=== PATIENT | female | born 2005 | race African-American/Black ===

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

== ENCOUNTER 2024-01-17 12:21 | Emergency (ER) | payer SELFPAY ==
[2024-01-17 12:52] VITALS: BP 140/82; O2SAT 100
[2024-01-17 13:13] LABS: BASOPHILS % (AUTO) 0.5 %; EOSINOPHILS # (AUTO) 0.1 10^3/uL (0.0-0.7); EOSINOPHILS % (AUTO) 2.4 %; HCT - HEMATOCRIT 38.6 % (37.0-47.0); HGB - HEMOGLOBIN 12.3 g/dL (12.0-16.0); LYMPHOCYTES # (AUTO) 1.3 10^3/uL (1.5-3.5); LYMPHOCYTES % (AUTO) 30.5 %; MEAN CORPUSCULAR HEMOGLOBIN 28.7 pg (27.0-31.0); MEAN CORPUSCULAR HGB CONC 31.9 g/dL (32.0-36.0); MEAN PLATELET VOLUME 10.7 fL (7.9-10.8); MONOCYTES # (AUTO) 0.3 10^3/uL (0.0-1.0); MONOCYTES % (AUTO) 7.3 %; NEUTROPHILS # (AUTO) 2.4 10^3/uL (1.5-6.6); NEUTROPHILS % (AUTO) 59.1 %; PLT - PLATELET COUNT 195 10^3/uL (130-450); RED BLOOD COUNT 4.29 10^6/uL (4.20-5.40); RED CELL DISTRIBUTION WIDTH 13.9 % (12.0-15.0); WHITE BLOOD COUNT 4.1 x10^3/uL (4.8-10.8)
[2024-01-17 13:25] LABS: BUN - BLOOD UREA NITROGEN 13 mg/dL (6-20); CARBON DIOXIDE - CO2 26 mmol/L (21-32); CHLORIDE 109 mmol/L (101-111); CREATININE 0.7 mg/dL (0.6-1.3); GFR - MDRD 131 (>89); GLUCOSE 92 mg/dL (74-104); POTASSIUM 4.1 mmol/L (3.5-4.5); SODIUM 140 mmol/L (135-145)
[2024-01-17 13:34] LABS: HCG,QUALITATIVE BLOOD NEGATIVE
--- NOTE | 2024-01-17 13:50 | ED Physician Documentation ---
PD HPI ABD PAIN - Stated complaint Stated Complaint: - Chief complaint Chief Complaint: Abd Pain - History obtained from History obtained from: Patient - Additional information Additional information: 18-year-old homeless and uninsured who with history of seizure disorder. She presents late on her menses with heavy bleeding starting overnight last night. She also has pelvic cramping with it. 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, Miscarriage(s) : Renal insuffiency HEENT: None Psych: Depression, Anxiety, Bipolar disorder, Schizophrenia, Other Musculoskeletal: None Derm: None - Past Surgical History Past Surgical History: Yes Ortho: ACL reconstruction - Present Medications Home Medications: Ambulatory Orders Medication Instructions Recorded Confirmed Ibuprofen [Motrin] 800 mg PO Q8H PRN #30 tablet 01/17/24 - Allergies Allergies/Adverse Reactions: Allergies Allergy/AdvReac Type Severity Reaction Status Date / Time haloperidol [From Haldol] Allergy Cramps Verified 01/17/24 12:39 acetaminophen AdvReac Emesis Verified 01/17/24 12:39 lorazepam [From Ativan] AdvReac Hallucinati Verified 01/17/24 12:39 ons - Social History Does the pt smoke?: Yes Smoking Status: Current some day smoker Does the pt drink ETOH?: Yes Does the pt have substance abuse?: Yes Substance Use and Type: Marijuana - Immunizations Immunizations are current?: No Immunizations: Other immun not current - POLST Patient has POLST: No PD ED PE NORMAL - Vitals Vital signs reviewed: Yes - General General: Alert and oriented X 3, No acute distress - Abdomen Abdomen: Normal bowel sounds, Soft, Non tender - Neuro Neuro: Alert and oriented X 3, Normal speech Results - Vitals Vitals: Vital Signs - 24 hr 01/17/24 12:40 Temperature 36.4 C L Heart Rate 91 Respiratory 18 Rate Blood Pressure 140/82 H O2 Saturation 100 Oxygen O2 Source Room air - Labs Labs: Laboratory Tests 01/17/24 01/17/24 13:07 13:07 WBC 4.1 L RBC 4.29 Hgb 12.3 Hct 38.6 MCV 90.0 MCH 28.7 MCHC 31.9 L RDW 13.9 Plt Count 195 MPV 10.7 Neut # (Auto) 2.4 Lymph # (Auto) 1.3 L [place] # (Auto) 0.3 Eos # (Auto) 0.1 Baso # (Auto) 0.0 Absolute Nucleated RBC 0.00 Nucleated RBC % 0.0 Sodium 140 Potassium 4.1 Chloride 109 Carbon Dioxide 26 Anion Gap 5.0 L BUN 13 Creatinine 0.7 Estimated GFR (MDRD) 131 Glucose 92 Calcium 10.0 Serum HCG, Qual NEGATIVE PD Medical Decision Making - ED course ED course: 18-year-old with heavy late menses and pelvic cramping. She is nontender and not an extremis. Workup in the emergency department demonstrates a normal H&H, normal BMP, and negative testing. Will start NSAIDs and hormonal therapy. I wrote a pharmacy voucher for her, but she needs some meds today. I talked wit h the pharmacist. We do not have any combination OCPs in house so was given Depo Provera instead. That said the patient did not want the Depo-Provera or control as she is wanting to get and as such we will do NSAIDs and she will return if she worsens. Departure - Departure Disposition: 01 Home, Self Care Clinical Impression: Menses, irregular Condition: Good Record reviewed to determine appropriate education?: Yes Instructions: ED Bleed Irregular Vaginal [facility]: [facility] [Provider Group] Prescriptions: Ibuprofen [Motrin] 800 mg PO Q8H PRN #30 tablet PRN Reason: PAIN &/OR FEVER Comments: [facility], return if worse. Forms: PCP List Discharge Date/Time: 01/17/24 14:04
[2024-01-17] MEDS: IBUPROFEN 800 MG TABLET PO STA (14:01)
== END 2024-01-17 14:04 | disposition home or self-care (01) ==
LOC: ED 12:21
DX: N92.6 Irregular menstruation, unspecified (principal); I10 Essential (primary) hypertension; F17.200 Nicotine dependence, unspecified, uncomplicated; Z59.00 Homelessness unspecified
CPT/HCPCS: 36415; 80048; 84703; 85025; 99283; 99284; A9270

== ENCOUNTER 2024-01-29 13:16 | Outpatient (CLI) | payer SELFPAY | END 2024-01-29 23:59 | disposition critical access hospital (66) | LOC: EMS 13:16 | DX: H53.8 Other visual disturbances (principal); R11.10 Vomiting, unspecified; S09.90XA Unspecified injury of head, initial encounter; W18.39XA Other fall on same level, initial encounter; Y92.830 Public park as the place of occurrence of the external cause | CPT/HCPCS: A0425; A0429 ==

== ENCOUNTER 2024-01-29 13:38 | Emergency (ER) | payer SELFPAY ==
[2024-01-29 13:47] VITALS: BP 110/82; O2SAT 96
[2024-01-29 14:12] LABS: BASOPHILS % (AUTO) 0.4 %; EOSINOPHILS # (AUTO) 0.2 10^3/uL (0.0-0.7); EOSINOPHILS % (AUTO) 4.6 %; HCT - HEMATOCRIT 40.7 % (37.0-47.0); LYMPHOCYTES # (AUTO) 1.2 10^3/uL (1.5-3.5); LYMPHOCYTES % (AUTO) 23.5 %; MEAN CORPUSCULAR HEMOGLOBIN 29.1 pg (27.0-31.0); MEAN CORPUSCULAR HGB CONC 31.9 g/dL (32.0-36.0); MEAN CORPUSCULAR VOLUME 91.1 fL (81.0-99.0); MEAN PLATELET VOLUME 11.1 fL (7.9-10.8); MONOCYTES # (AUTO) 0.4 10^3/uL (0.0-1.0); MONOCYTES % (AUTO) 7.8 %; NEUTROPHILS # (AUTO) 3.2 10^3/uL (1.5-6.6); NEUTROPHILS % (AUTO) 63.5 %; PLT - PLATELET COUNT 223 10^3/uL (130-450); RED BLOOD COUNT 4.47 10^6/uL (4.20-5.40); RED CELL DISTRIBUTION WIDTH 13.5 % (12.0-15.0)
[2024-01-29] MEDS: DEXAMETHASONE 10 MG/ML VIAL IM STA (14:13)
[2024-01-29] MEDS: KETOROLAC 60 MG/2 ML VIAL IM STA (14:13)
--- NOTE | 2024-01-29 14:45 | ED Physician Documentation ---
PD HPI HEADACHE - Stated complaint Stated Complaint: GLF - Chief complaint Chief Complaint: Heent - History obtained from History obtained from: Patient - Additional information Additional information: The pt comes to the ED with CC of GLF last night. She states she became lightheaded and fell backward, striking her head. No LOC. Pt was able to partially catch herself before landing. She states this has happened previously when she gets dehydrated. The pt denies headache, visual change, or focal neurologic deficits. No other injuries. 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, Miscarriage(s) : Renal insuffiency HEENT: None Psych: Depression, Anxiety, Bipolar disorder, Schizophrenia, Other Musculoskeletal: None Derm: None - Past Surgical History Past Surgical History: Yes Ortho: ACL reconstruction - Present Medications Home Medications: Ambulatory Orders Medication Instructions Recorded Confirmed Ibuprofen [Motrin] 800 mg PO Q8H PRN #30 tablet 01/17/24 cephALEXin [Keflex] 500 mg PO Q6H #28 cap 02/02/24 - Allergies Allergies/Adverse Reactions: Allergies Allergy/AdvReac Type Severity Reaction Status Date / Time haloperidol [From Haldol] Allergy Cramps Verified 02/04/24 12:52 acetaminophen AdvReac Emesis Verified 02/04/24 12:52 lorazepam [From Ativan] AdvReac Hallucinati Verified 02/04/24 12:52 ons - Social History Does the pt smoke?: Yes Smoking Status: Current every day smoker Does the pt drink ETOH?: Yes Does the pt have substance abuse?: Yes - Immunizations Immunizations are current?: No Immunizations: Other immun not current - POLST Patient has POLST: No PD ED PE NORMAL - Vitals Vital signs reviewed: Yes - General General: Alert and oriented X 3, No acute distress, Well developed/nourished - HEENT HEENT: Atraumatic (No contusion, abrasion, or other evidence of trauma), PERRL, EOMI, Moist mucous membranes - Neck Neck: Supple, no meningeal sign, No bony TTP - Cardiac Cardiac: RRR, No murmur, Strong equal pulses - Respiratory Respiratory: No respiratory distress, Clear bilaterally - Abdomen Abdomen: Soft, Non tender, Non distended - Derm Derm: Normal color, Warm and dry, No rash - Extremities Extremities: No deformity - Neuro Neuro: Alert and oriented X 3 - Psych Psych: Normal mood, Normal affect Results - Vitals Vitals: Oxygen O2 Source Room air - Labs Labs: Laboratory Tests 01/29/24 14:05 WBC 5.0 RBC 4.47 Hgb 13.0 Hct 40.7 MCV 91.1 MCH 29.1 MCHC 31.9 L RDW 13.5 Plt Count 223 MPV 11.1 H Neut # (Auto) 3.2 Lymph # (Auto) 1.2 L [place] # (Auto) 0.4 Eos # (Auto) 0.2 Baso # (Auto) 0.0 Absolute Nucleated RBC 0.00 Nucleated RBC % 0.0 PD Medical Decision Making - ED course Complexity details: reviewed results, re-evaluated patient, considered differential, d/w patient ED course: The pt was well-appearing, and the plan was to give the pt IV fluids, but just after having blood drawn, she left the ED without completing treatment. The pt was stable, and most likely would have been discharged, but final disposition had not been made as of the pt's departure. Departure - Departure Disposition: Left Prior to Disposition Clinical Impression: Head injury Qualifiers: Encounter type: initial encounter Qualified Code(s): S09.90XA - Unspecified injury of head, initial encounter Forms: PCP List Discharge Date/Time: 01/29/24 14:44
== END 2024-01-29 14:44 | disposition home or self-care (01) ==
LOC: EDUNIT# → ED 13:38
DX: S09.90XA Unspecified injury of head, initial encounter (principal); W19.XXXA Unspecified fall, initial encounter
CPT/HCPCS: 36415; 85025; 96372; 99283

== ENCOUNTER 2024-02-02 14:04 | Emergency (ER) | payer SELFPAY ==
[2024-02-02 14:31] VITALS: BP 129/66; O2SAT 100
[2024-02-02 14:37] LABS: BILIRUBIN,URINE NEGATIVE (NEGATIVE); GLUCOSE, URINE (UA) NEGATIVE (NEGATIVE); KETONES,URINE (UA) NEGATIVE (NEGATIVE); LEUKOCYTE ESTERASE, URINE NEGATIVE (NEGATIVE); NITRITE,URINE NEGATIVE (NEGATIVE); OCCULT BLOOD,URINE NEGATIVE (NEGATIVE); PROTEIN,URINE NEGATIVE (NEGATIVE); UROBILINOGEN,URINE 0.2 (NORMAL) E.U./dL (NORMAL)
[2024-02-02 14:39] LABS: CLARITY,URINE CLOUDY (CLEAR); HCG UR QUAL NEGATIVE
[2024-02-02 14:49] LABS: AMORPHOUS SEDIMENT,UR Marked /LPF; BACTERIA,URINE Rare /HPF (None Seen); RBC,URINE None Seen /HPF (0-5); SQUAMOUS EPITHELIAL CELL,UR FEW Squamous (<= Few); WBC,URINE 0-3 /HPF (0-5)
--- NOTE | 2024-02-02 15:53 | ED Physician Documentation ---
History of Present Illness - Stated complaint Stated Complaint: ,GLF, HIP PX - Chief complaint Chief Complaint: Ext Problem - History obtained from History obtained from: Patient - History of Present Illness Timing: How many days ago (2) Pain level max: 4 Pain level now: 4 - Additonal information Additional information: Patient is a 18-year-old female who presents to the emergency department stating that her bellybutton has been red and swollen, she states he used to have a piercing in this site. She has no piercing currently. She also states that her bladder feels "heavy and like she is urinating frequently. She states that she used to have "100s of seizures per day", states that she had a seizure yesterday and injured her left hip. She states that it is worse with walking, better with rest. She states she does not have any money for Motrin or Tylenol. No head injury. No neck or back pain. No fevers. No chills. No drainage. No vaginal bleeding or discharge. Not sexually active. No STD exposure. Review of Systems Constitutional: denies: Fever GI: denies: Vomiting, Diarrhea PD PAST MEDICAL HISTORY - Past Medical History Cardiovascular: Hypertension Respiratory: Sleep apnea Neuro: Seizure disorder Endocrine/Autoimmune: None GI: None DIRECTOR OF CARDIOLOGY: Ovarian cysts, Miscarriage(s) : Renal insuffiency HEENT: None Psych: Depression, Anxiety, Bipolar disorder, Schizophrenia, Other Musculoskeletal: None Derm: None - Past Surgical History Past Surgical History: Yes Ortho: ACL reconstruction - Present Medications Home Medications: Ambulatory Orders Medication Instructions Recorded Confirmed Ibuprofen [Motrin] 800 mg PO Q8H PRN #30 tablet 01/17/24 cephALEXin [Keflex] 500 mg PO Q6H #28 cap 02/02/24 - Allergies Allergies/Adverse Reactions: Allergies Allergy/AdvReac Type Severity Reaction Status Date / Time haloperidol [From Haldol] Allergy Cramps Verified 02/02/24 14:28 acetaminophen AdvReac Emesis Verified 02/02/24 14:28 lorazepam [From Ativan] AdvReac Hallucinati Verified 02/02/24 14:28 ons - Social History Does the pt smoke?: Yes Smoking Status: Current every day smoker Does the pt drink ETOH?: Yes Does the pt have substance abuse?: Yes - Immunizations Immunizations are current?: No Immunizations: Other immun not current - POLST Patient has POLST: No PD ED PE NORMAL - Vitals Vital signs reviewed: Yes - General General: Alert and oriented X 3, No acute distress - HEENT HEENT: PERRL, Moist mucous membranes - Neck Neck: Supple, no meningeal sign - Cardiac Cardiac: RRR, Strong equal pulses - Respiratory Respiratory: No respiratory distress, Clear bilaterally - Abdomen Abdomen: Soft, Non tender, Non distended, Other (Mild erythema surrounding the umbilicus. There is a small easily reducible periumbilical hernia. No induration or drainage.) - Back Back: No spinal TTP (No midline tenderness to palpation or percussion. No step- off or deformity.) - Derm Derm: Warm and dry - Extremities Extremities: Other (Normal examination of the left hip, no crepitus. Full range of motion without any significant pain. No tenderness to palpation. Neurovascular intact. Otherwise normal examination of the left lower extremity) - Neuro Neuro: Alert and oriented X 3 - Psych Psych: Normal mood, Normal affect Results - Vitals Vitals: Vital Signs - 24 hr 02/02/24 14:19 Temperature 36.1 C L Heart Rate 78 Respiratory 16 Rate Blood Pressure 129/66 O2 Saturation 100 Oxygen O2 Source Room air - Labs Labs: Laboratory Tests 02/02/24 02/02/24 14:30 14:30 Urine Color YELLOW Urine Clarity CLOUDY Urine pH 8.0 H Ur Specific [place] 1.020 Urine Protein NEGATIVE Urine Glucose (UA) NEGATIVE Urine Ketones NEGATIVE Urine Occult Blood NEGATIVE Urine Nitrite NEGATIVE Urine Bilirubin NEGATIVE Urine Urobilinogen 0.2 (NORMAL) Ur Leukocyte Esterase NEGATIVE Urine RBC None Seen Urine WBC 0-3 Ur Squamous Epith Cells FEW Squamous Amorphous Sediment Marked Urine Bacteria Rare Ur Microscopic Review INDICATED Urine Culture Comments NOT INDICATED Urine HCG, Qual NEGATIVE PD Medical Decision Making - ED course Complexity details: reviewed results, re-evaluated patient, considered differential, d/w patient ED course: 18-year-old female with a mild cellulitis of the abdomen where her piercing used to be, we will place on Keflex for this. No abscess. No purulent drainage. She also has pain to the left hip after a seizure yesterday. Ambulating without any noticeable limp. Given a dose of Toradol here. She can use Motrin or Tylenol as needed for pain at home. Urinalysis does not show any acute abnormalities. No evidence of UTI. She is not sexually active, no vaginal bleeding or discharge. Patient states that she does not have any money and will be moving back to [place] soon. She received a pharmacy voucher for the cephalexin. Patient is well-appearing, nontoxic. Afebrile. Patient counseled regarding signs and symptoms for which I believe and urgent re-evaluation would be necessary. Patient with good understanding of and agreement to plan and is comfortable going home at this time This document was made in part using voice recognition software. While efforts are made to proofread this document, sound alike and grammatical errors may occur. Departure - Departure Disposition: Home, Self Care Clinical Impression: Cellulitis Qualifiers: Site of cellulitis: trunk Site of cellulitis of trunk: umbilicus Qualified Code(s): L03.316 - Cellulitis of umbilicus Strain of left hip Qualifiers: Encounter type: initial encounter Qualified Code(s): S76.012A - Strain of muscle, fascia and tendon of left hip, initial encounter Condition: Good Instructions: ED Infec Skin Cellulitis, ED Strain Muscle Ext Follow-Up: [facility] [Provider Group] [facility] [Provider Group] Prescriptions: cephALEXin [Keflex] 500 mg PO Q6H #28 cap Comments: You were given a voucher today for Keflex. Please take this to the [facility] pharmacy to fill your prescription. Please follow-up with a walk-in clinic as needed for any further care. Forms: PCP List Discharge Date/Time: 02/02/24 16:15
[2024-02-02] MEDS: KETOROLAC 30 MG/ML VIAL IM STA (16:01)
[2024-02-02] MEDS: cephALEXin 250 MG CAPSULE PO STA (16:02)
== END 2024-02-02 16:15 | disposition home or self-care (01) ==
LOC: ED 14:04
DX: L03.316 Cellulitis of umbilicus (principal); S76.012A Strain of muscle, fascia and tendon of left hip, initial encounter; W18.30XA Fall on same level, unspecified, initial encounter; Y93.89 Activity, other specified; F17.200 Nicotine dependence, unspecified, uncomplicated
CPT/HCPCS: 81001; 81025; 96372; 99283; A9270; 81003; 87086

== ENCOUNTER 2024-02-04 12:03 | Outpatient (CLI) | payer SELFPAY | END 2024-02-04 12:04 | disposition critical access hospital (66) | LOC: EMS 12:03 | DX: R41.0 Disorientation, unspecified (principal); R21 Rash and other nonspecific skin eruption; G43.909 Migraine, unspecified, not intractable, without status migrainosus | CPT/HCPCS: A0425; A0429 ==

== ENCOUNTER 2024-02-04 12:29 | Emergency (ER) | payer SELFPAY ==
--- NOTE | 2024-02-04 12:47 | ED Physician Documentation ---
History of Present Illness - Stated complaint Stated Complaint: ALLERGIC REACTION - Additonal information Additional information: 18-year-old female with complex psych history has not been on any of her psych medications now for about 2 years. This is patient's sixth visit in the last 3 months and I have seen her during some of these visits and she does appear to be more mentally unstable, Very agitated with some pressured speaking. Patient says that she was having some hallucinations yesterday but she says this is strictly due to the Keflex.. Patient is very labile and is coming in today for concerns of an allergic reaction to Keflex. Patient was recently here and sta rted on Keflex for possible cellulitis in her bellybutton that has improved and she is now feeling some itchiness and erythema with burning sensation to her left pannus. No fevers or chills no shortness of breath airway patent. PD PAST MEDICAL HISTORY - Past Medical History Cardiovascular: Hypertension Respiratory: Sleep apnea Neuro: Seizure disorder Endocrine/Autoimmune: None GI: None [employer]: Ovarian cysts, Miscarriage(s) : Renal insuffiency HEENT: None Psych: Depression, Anxiety, Bipolar disorder, Schizophrenia, Other Musculoskeletal: None Derm: None - Past Surgical History Past Surgical History: Yes Ortho: ACL reconstruction - Present Medications Home Medications: Ambulatory Orders Medication Instructions Recorded Confirmed Ibuprofen [Motrin] 800 mg PO Q8H PRN #30 tablet 01/17/24 cephALEXin [Keflex] 500 mg PO Q6H #28 cap 02/02/24 - Allergies Allergies/Adverse Reactions: Allergies Allergy/AdvReac Type Severity Reaction Status Date / Time haloperidol [From Haldol] Allergy Cramps Verified 02/04/24 12:52 acetaminophen AdvReac Emesis Verified 02/04/24 12:52 lorazepam [From Ativan] AdvReac Hallucinati Verified 02/04/24 12:52 ons - Social History Does the pt smoke?: Yes Smoking Status: Current every day smoker Does the pt drink ETOH?: Yes Does the pt have substance abuse?: Yes - Immunizations Immunizations are current?: No Immunizations: Other immun not current - POLST Patient has POLST: No PD ED PE NORMAL - Vitals Vital signs reviewed: Yes - General General: Alert and oriented X 3, No acute distress, Well developed/nourished - HEENT HEENT: Atraumatic - Abdomen Abdomen: Normal bowel sounds, Soft, Non tender, Non distended, No organomegaly - Derm Derm: Other (Erythema to left portion of patient's pannusNo induration no fluctuance) PD ED PE EXPANDED - Psych Psych: Depressed, Withdrawn, Poor eye contact, Anxious, Agitated, Manic, Pressured speech, Visual hallucinations. No: Suicidal, Homicidal Results - Vitals Vitals: Vital Signs - 24 hr 02/04/24 12:32 Temperature 36.5 C Heart Rate 68 Respiratory 16 Rate Blood Pressure 125/72 O2 Saturation 97 Oxygen O2 Source Room air - Labs Labs: Laboratory Tests 02/04/24 02/04/24 13:01 13:01 WBC 4.5 L RBC 4.13 L Hgb 12.1 Hct 37.5 MCV 90.8 MCH 29.3 MCHC 32.3 RDW 13.2 Plt Count 219 MPV 10.3 Neut # (Auto) 2.4 Lymph # (Auto) 1.4 L [place] # (Auto) 0.4 Eos # (Auto) 0.3 Baso # (Auto) 0.0 Absolute Nucleated RBC 0.00 Nucleated RBC % 0.0 Sodium 139 Potassium 4.4 Chloride 107 Carbon Dioxide 30 Anion Gap 2.0 L BUN 13 Creatinine 0.6 Estimated GFR (MDRD) 156 Glucose 81 Calcium 9.7 Total Bilirubin 0.7 AST 14 ALT 14 Alkaline Phosphatase 48 Total Protein 6.4 Albumin 4.2 Globulin 2.2 Albumin/Globulin Ratio 1.9 Lipase 51 TSH 1.33 Salicylates < 1.5 Acetaminophen 0.2 Ethyl Alcohol < 10.0 PD Medical Decision Making - ED course ED course: 18-year-old female presents emergency department for concerns of worsening skin infection. Patient also reports that she is worried that she may be having an allergic reaction from the cough exercise been taking for her cellulitis in her [place] that has now fully resolved but now patient is worried that she has some new erythema to the left portion of her pannus. Because patient did state that she has been taking her psych meds now for about a year and this is her sixth ER visit and she does appear to be quite emotionally labile I went ahead and involved social work for further evaluation of the patient and to communicate and discussed with patient her concerns for possible hallucinations. Labs are complete for further evaluation and she has mild leukopenia white count 4.5 no electrolyte abnormalities no anemia. We have that she is experiencing a yeast infection in her left pannus that she was given some nysta tin topical for this to help with the irritation and it proper hygiene was discussed with the patient she does appear to be quite disheveled and poor hygiene. Patient says that she is planning on moving in about a month social work saw her and does not see any concerning signs to detain the patient for DCR. Patient says that she does not want any additional resources she said that she has not had any visual or audible hallucinations today she denies any suicidal homicidal ideation. Patient was told if these symptoms were to start in terms of suicidal or homicidal ideation or if her hallucinations were to get any worse to come back into the emergency department for further evaluation. Patient told to stop taking her Keflex. All questions answered patient safe for discharge. Departure - Departure Disposition: 01 Home, Self Care Clinical Impression: Skin yeast infection, Hallucinations, visual Instructions: ED Candidiasis Cutaneous Comments: Thank you for trusting us with your care. It appears that you have a yeast infection in the folds of your abdomen. We have given you some nystatin powder here in the emergency department you can apply this to your abdominal fold 2-3 times a day. Make sure that you are washing your body with soap and water every single day and drying the area with a towel thoroughly before applying the powder. If you are noticing any increased hallucinations despite being on the Keflex please come back to the emergency department for further evaluation I do not believe that you need to continue the Keflex antibiotic. Please come back to the emergency department for starting to have any hallucinations, suicidal homicidal ideation. Forms: PCP List Discharge Date/Time: 02/04/24 14:30
[2024-02-04 12:58] VITALS: BP 125/72; O2SAT 97
[2024-02-04 13:11] LABS: BASOPHILS % (AUTO) 0.4 %; EOSINOPHILS # (AUTO) 0.3 10^3/uL (0.0-0.7); EOSINOPHILS % (AUTO) 6.3 %; HCT - HEMATOCRIT 37.5 % (37.0-47.0); HGB - HEMOGLOBIN 12.1 g/dL (12.0-16.0); LYMPHOCYTES # (AUTO) 1.4 10^3/uL (1.5-3.5); LYMPHOCYTES % (AUTO) 30.7 %; MEAN CORPUSCULAR HEMOGLOBIN 29.3 pg (27.0-31.0); MEAN CORPUSCULAR HGB CONC 32.3 g/dL (32.0-36.0); MEAN CORPUSCULAR VOLUME 90.8 fL (81.0-99.0); MEAN PLATELET VOLUME 10.3 fL (7.9-10.8); MONOCYTES # (AUTO) 0.4 10^3/uL (0.0-1.0); NEUTROPHILS # (AUTO) 2.4 10^3/uL (1.5-6.6); NEUTROPHILS % (AUTO) 53.6 %; PLT - PLATELET COUNT 219 10^3/uL (130-450); RED BLOOD COUNT 4.13 10^6/uL (4.20-5.40); RED CELL DISTRIBUTION WIDTH 13.2 % (12.0-15.0); WHITE BLOOD COUNT 4.5 x10^3/uL (4.8-10.8)
[2024-02-04 13:21] LABS: ACETAMINOPHEN 0.2 ug/mL; ETOH - ETHANOL < 10.0 mg/dL; LIPASE 51 U/L (11-82)
[2024-02-04 13:25] LABS: ALBUMIN 4.2 g/dL (3.2-5.5); ALBUMIN/GLOBULIN RATIO 1.9 (1.0-2.2); ALKALINE PHOSPHATASE 48 IU/L (42-121); ALT ALANINE AMINOTRANSFERASE 14 IU/L (10-60); AST ASPARTATE AMINOTRANSFERASE 14 IU/L (10-42); BILIRUBIN,TOTAL 0.7 mg/dL (0.2-1.0); BUN - BLOOD UREA NITROGEN 13 mg/dL (6-20); CALCIUM 9.7 mg/dL (8.5-10.3); CARBON DIOXIDE - CO2 30 mmol/L (21-32); CHLORIDE 107 mmol/L (101-111); CREATININE 0.6 mg/dL (0.6-1.3); GFR - MDRD 156 (>89); GLUCOSE 81 mg/dL (74-104); POTASSIUM 4.4 mmol/L (3.5-4.5); SODIUM 139 mmol/L (135-145); TOTAL PROTEIN 6.4 g/dL (6.4-8.9)
[2024-02-04 13:26] LABS: SALICYLATE < 1.5 mg/dL
[2024-02-04] MEDS: NYSTATIN POWDER 15 GM TOP STA (13:28)
[2024-02-04 14:14] LABS: THYROID STIMULATING HORMONE 1.33 uIU/mL (0.34-5.60)
== END 2024-02-04 14:30 | disposition home or self-care (01) ==
LOC: EDUNIT# → ED 12:29
DX: B37.2 Candidiasis of skin and nail (principal); R44.1 Visual hallucinations; D72.819 Decreased white blood cell count, unspecified; F17.200 Nicotine dependence, unspecified, uncomplicated
CPT/HCPCS: 36415; 80053; 80143; 80179; 82077; 83690; 84443; 85025; 99283; A9270

== ENCOUNTER 2024-02-16 15:00 | Outpatient (CLI) | payer SELFPAY | END 2024-02-16 23:59 | disposition short-term general hospital (02) | LOC: EMS 15:00 | DX: R11.2 Nausea with vomiting, unspecified (principal) | CPT/HCPCS: A0425; A0429 ==